=== PATIENT | female | born 1960 | race Caucasian/White ===

== ENCOUNTER 2019-09-21 21:04 | Emergency (ER) | payer OTHER, SELFPAY ==
--- NOTE | ~2019-09-21 | XR_ITS ---
EXAMINATION: XR tibia fibula RT 2V, XR knee RT 2V EXAM DATE: 09/21/2019 21:59 INDICATION: Initial encounter following injury, with pain of the right knee, tibia/fibula. TECHNIQUE: Frontal and lateral projections of the right knee. Frontal and lateral projections right tibia/fibula. There are no prior studies for comparison. FINDINGS: There are no acute right knee, tibia/fibula fractures or dislocations identified. There is no subcutaneous gas. There is soft tissue swelling right leg anterolaterally. There are no radiopa que foreign bodies. No right knee joint effusion. IMPRESSION: 1. Right knee, tibia/fibula exam without acute osseous findings. 2. Soft tissue swelling. Reviewed, dictated and finalized at location A. IMPRESSION: 1. Right knee, tibia/fibula exam without acute osseous findings. 2. Soft tissue swelling.
[2019-09-21 21:18] VITALS: BP 133/83; PULSE 90; RESP 20; TEMP 36.8; O2SAT 100
--- NOTE | 2019-09-21 21:57 | ED.LOWEXIN ---
HPI - Extremity Injury (Lower) General Chief Complaint: Extremity Injury, Lower Stated Complaint: right leg pain Time Seen by Provider: 09/21/19 21:47 History of Present Illness HPI Narrative: She was walking the dogs when she got pulled over and fell onto her right leg. She has pain in the right knee and lower leg. She also has a large amount of swelling over the lateral lower leg she has been able to bear weihgt no wounds. Related Data Allergies Allergy/AdvReac Type Severity Reaction Status Date / Time azithromycin [From Zithromax] AdvReac Nausea Verified 09/21/19 21:21 Review of Systems Review of Systems: All systems reviewed & are unremarkable except as noted in HPI and below PMFSH Social History Social History Gender identity (if verbalized by the patient): Female Exam Const: General: healthy appearing, no acute distress and alert Orientation/consciousness: patient oriented x3 HENMT: Head: normal to inspection Resp: Effort & Inspection: normal respiratory effort Skin: General skin exam: normal color Wounds: no wounds Neuro: General: patient oriented x3 and moves all extremities Speech: normal speech Extrem: Other: Large right lower leg hematoma Course Vital Signs Vital signs: Vital Signs Temperature 36.8 C 09/21/19 21:18 Pulse Rate 90 09/21/19 21:18 Respiratory Rate 20 09/21/19 21:18 Blood Pressure 133/83 09/21/19 21:18 Pulse Oximetry 100 09/21/19 21:18 Temperature 36.8 C 09/21/19 21:18 Pulse Rate 81 09/21/19 22:48 Respiratory Rate 17 09/21/19 22:48 Blood Pressure 128/79 09/21/19 22:48 Pulse Oximetry 99 09/21/19 22:48 MDM - Extremity Injury (Lower) MDM Narrative Medical decision making narrative: No fracture on X-ray. Large hematoma on exam. Imaging Data Radiologist's impression: ITS Impressions Knee X-Ray 09/21/19 22:06 IMPRESSION: 1. Right knee, tibia/fibula exam without acute osseous findings. 2. Soft tissue swelling. Tibia/Fibula X-Ray 09/21/19 22:06 IMPRESSION: 1. Right knee, tibia/fibula exam without acute osseous findings. 2. Soft tissue swelling. Discharge Plan Discharge Clinical Impression: Hematoma of right lower leg Patient Disposition: Home, Self-Care Condition: Stable Instructions: Hematoma (ED) Prescriptions: New tramadol 50 mg tablet 50 mg PO Q6H PRN (Reason: pain) Qty: 10 RF: 0 ibuprofen 600 mg tablet 600 mg PO Q6H Qty: 30 RF: 0 Follow-up/Referrals: Nilson,Nicole Mcintosh MD [Primary Care Provider] - Discharge Date/Time: 09/21/19 22:49
[2019-09-21] MEDS: IBUPROFEN 600 MG TABLET PO (22:41)
[2019-09-21] MEDS: traMADol HCL 50 MG TABLET PO (22:41)
[2019-09-21 22:48] VITALS: BP 128/79; PULSE 81; RESP 17; O2SAT 99
== END 2019-09-21 22:49 | disposition home or self-care (01) ==
PROVIDERS: Emergency Provider Emergency Medicine; PCP Internal Medicine
DX: S80.11XA Contusion of right lower leg, initial encounter (principal); W01.0XXA Fall on same level from slipping, tripping and stumbling without subsequent striking against object, initial encounter
CPT/HCPCS: 73560; 73590; 99284; A9270